=== PATIENT | female | born 1985 | race Caucasian/White ===

== ENCOUNTER → 2016-12-28 | Outpatient (CLI) | payer BC ==
--- NOTE | 2016-12-28 16:41 | MR ---
EXAMINATION: MRI right femur HISTORY: Muscle strain COMPARISON: None TECHNIQUE: Multiplanar and multisequence images obtained through the right lower leg without contras t. Coronal and sagittal reconstructions obtained. FINDINGS: The semimembranosus tendon appears torn proximally with distal retraction of the muscle nash dy. The proximal semimembranosus tendon is irregular in signal. There are surrounding edema and appe ars complete. There is also increased signal within the semitendinosus muscle body extending to the myotendinous junction. The biceps femoris appears normal in signal. The remaining muscular and tendi nous signal characteristics appear normal. The visualized intrapelvic structures are unremarkable. T he ACL and the PCL are intact. No suprapatellar joint effusion. No abnormal bone mineralization. IMPRESSION: 1. High-grade full-thickness tear of the semimembranosus tendon proximally 2. Mild to moderate myotendinous strain of the semitendinosus muscle
== END ==
LOC: MW.MRI 10:01
PROVIDERS: ATTEND Physician Assistant
DX: S86.121A Laceration of other muscle(s) and tendon(s) of posterior muscle group at lower leg level, right leg, initial encounter (principal); S76.311A Strain of muscle, fascia and tendon of the posterior muscle group at thigh level, right thigh, initial encounter
CPT/HCPCS: 73718-26-RT; 73718-RT

== ENCOUNTER 2018-06-05 11:10 | Day surgery (SDC) | payer BC ==
[2018-06-05] MEDS: Lactated Ringers 1,000 ML IV SCH ×3 (12:00→20:04)
--- NOTE | 2018-06-05 12:39 | PCM.PREANE ---
Preanesthetic Assessment - Procedure Proposed Procedure: Left Ovarian Cystectomy via laparoscopy - Anesthesia/Transfusion/Family Hx Other Type of Anesthesia Reaction Comment: stated urinary retention after recent BTL at elsewhere Family History of Anesthesia Reaction: No Transfusion History: No Prior Transfusion(s) Additional History: [place] noted. - Review of Systems General: No Symptoms Pulmonary: Other (smoker; recent bronchitis) Cardiovascular: No Symptoms Gastrointestinal: Abdominal Pain (left side) Neurological: No Symptoms - Physical Assessment NPO Status Date: 06/04/18 NPO Status Time: 22:00 Height: 5 ft 3 in Weight: 154 lb ASA Class: 2 Mental Status: Alert & Oriented x3 Airway Class: Mallampati = 1 Dentition: Reports: Normal Dentition, Caries Thyro-Mental Finger Breadths: 3 Mouth Opening Finger Breadths: 3 ROM/Head Extension: Full Lungs: Clear to Auscultation, Normal Respiratory Effort Cardiovascular: Regular Rate, Regular Rhythm, No Murmurs - Allergies Allergies/Adverse Reactions: Allergies Allergy/AdvReac Type Severity Reaction Status Date / Time hydrocodone Allergy Nausea Verified 05/31/18 12:11 - Blood Blood Available: No Product(s) Available: None - Anesthesia Plan Pre-Op Medication Ordered: None - Acknowledgements Anesthesia Type Planned: General Anesthesia (OET for laparoscopy) Pt an Appropriate Candidate for the Planned Anesthesia: Yes Alternatives and Risks of Anesthesia Discussed w Pt/Guardian: Yes Pt/Guardian Understands and Agrees with Anesthesia Plan: Yes PreAnesthesia Questionnaire - Past Health History Medical/Surgical History: Denies Medical/Surgical History HEENT History: Reports: Other (See Below) Other HEENT History: wears glasses Genitourinary History: Reports: None 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: Psychiatric History: Reports: Anxiety, Depression - Past Surgical History Head Surgeries/Procedures: Reports: None HEENT Surgical History: Reports: Oral Surgery Female Surgical History: Reports: Other (See Below) Other Female Surgeries/Procedures: laparoscopic guillermo salpingectomy - SUBSTANCE USE Smoking Status *Q: Current Every Day Smoker Tobacco Use Within Last Twelve Months: Cigarettes Recreational Drug Use History: No - HOME MEDS Home Medications: Home Meds ALPRAZolam [Xanax] 1 mg PO TID PRN 05/31/18 [History] Citalopram [Citalopram HBr] 20 mg PO DAILY 05/31/18 [History] buPROPion HCl [Wellbutrin Xl] 300 mg PO DAILY 05/31/18 [History]
[2018-06-05] MEDS: Nicotine 7 MG/24 Hr Patch TRDERM SCH ×2 (15:01→15:05)
[2018-06-05] MEDS ORDERED: Lidocaine 2% 5 ML SDV ONE (17:04)
[2018-06-05] MEDS ORDERED: Rocuronium 10 MG/ML 10 ML Syringe ONE (17:04)
[2018-06-05] MEDS ORDERED: Ondansetron 4 MG/2 ML SDV ONE (17:04)
[2018-06-05] MEDS ORDERED: Propofol 200 MG/20 ML SDV ONE (17:05)
[2018-06-05] MEDS ORDERED: fentaNYL 250 MCG/5 ML SDV ONE (17:06)
[2018-06-05] MEDS ORDERED: Midazolam 1 MG/ML 2 ML SDV ONE (17:06)
[2018-06-05] MEDS ORDERED: Bupivacaine 0.25% 10 ML SDV ONE (17:55)
[2018-06-05] MEDS ORDERED: Succinylcholine 200 MG/10 ML MDV ONE (18:19)
[2018-06-05] MEDS ORDERED: Neostigmine Methylsulfate 1 MG/ML 5 ML Syringe ONE (18:59)
[2018-06-05] MEDS ORDERED: Glycopyrrolate 0.2 MG/ML SDV ONE ×2 (18:59)
--- NOTE | 2018-06-05 19:31 | PCM.OPNOTE ---
- General Post-Op/Procedure Note Date of Surgery/Procedure: 06/05/18 Operative Procedure(s): operative laparoscopy, left ovarian cystectomy, lysis of adhesions Findings: normal appearing uterus, liver, gallbladder, left ovary, cul de sac. Right ovary with adhesion to sigmoid epiploica (lysed) adhesion of cecum to abdominal wall (lysed), simple left ovarian cyst , clear fluid, wall sent to pathology, no evidence of hernia or endometriosis. Pre Op Diagnosis: left lower quadrant and pelvic pain Post-Op Diagnosis: Same and adhesions Anesthesia Technique: General ET Tube Primary Surgeon: Flor Johnson Anesthesia Provider: Sergey Renee Beam Press Operator: Cammie Quiroz Pathology: left ovarian cyst wall biopsy EBL in mLs: 5 Complications: None known Condition: Good
--- NOTE | 2018-06-05 19:43 | PCM.POSTAN ---
POST ANESTHESIA ASSESSMENT - MENTAL STATUS Mental Status: Alert, Oriented - RESPIRATORY Respiratory Status: Respiratory Rate WNL, Airway Patent, O2 Saturation Stable - CARDIOVASCULAR CV Status: Pulse Rate WNL, Blood Pressure Stable - GASTROINTESTINAL GI Status: No Symptoms - PAIN Free Text/Narrative:: pr resting comfortably - POST OP HYDRATION Hydration Status: Adequate & Stable
[2018-06-05] MEDS: Acetaminophen/oxyCODONE 325-5 MG Tab PO PRN (20:04)
--- NOTE | 2018-06-05 20:18 | PCM48HPAN ---
Post Anesthesia Note - EVALUATION WITHIN 48HRS OF ANESTHETIC Vital Signs in Normal Range: Yes Patient Participated in Evaluation: Yes Respiratory Function Stable: Yes Airway Patent: Yes Cardiovascular Function Stable: Yes Hydration Status Stable: Yes Pain Control Satisfactory: Yes Nausea and Vomiting Control Satisfactory: Yes Mental Status Recovered: Yes Resp Rate: 11
[2018-06-06] MEDS: Acetaminophen/oxyCODONE 325-5 MG Tab PO PRN ×2 (01:56→08:07)
--- NOTE | 2018-06-06 02:19 | OR ---
SURGEON: Flor Johnson M.D. DATE OF PROCEDURE: 06/05/2018 PREOPERATIVE DIAGNOSIS: Left lower quadrant and pelvic pain. POSTOPERATIVE DIAGNOSES: 1. Left lower quadrant and pelvic pain. 2. Pelvic adhesions. PROCEDURE: Laparoscopic lysis of adhesion and left ovarian cystectomy. ANESTHESIA: General endotracheal. FLUIDS: 1800 mL crystalloid. FINDINGS: The left lower quadrant incision from the aspect of the peritoneum was normally healed with no evidence of any hernia. The left tube and ovary appeared normal. The uterus appeared normal. The anterior and posterior cul-de-sac appeared normal. There was no evidence of any endometriosis. The cecum was scarred to the right lower quadrant as previously noted, however, at this point, both adhesions were lysed. The liver and gallbladder appeared normal. There were adhesions of the sigmoid epiploica to the right ovary. The right ovary otherwise appeared normal. COMPLICATIONS: None known. DISPOSITION: Stable to recovery. BRIEF HISTORY: This is a 32-year-old female, she presents approximately two and half months following a laparoscopic bilateral salpingectomy for sterilization. The surgery was uncomplicated, however, was complicated by postop urinary retention, which initiated a pain cycle that has not resolved for her. Her pain is primarily in the left lower quadrant. She did have a CT scan in the emergency room where she presented and it was noted that she had a 2.4 cm left ovarian cyst. This was followed up by ultrasound, initially did not resolve, therefore she requested proceeding with ovarian cystectomy in hopes that this may help her pain as well as evaluation for adhesions or other causes of her pain. However, on the day of surgery, repeat ultrasound showed this cyst to be resolved and now there was a 1.4 cm simple cyst on the left ovary. I explained to her that it may be beneficial to avoid surgery and proceed with physical therapy or other methods to address her pain, however, she desires to proceed with a laparoscopic evaluation with risks discussed including bleeding, infection, injury to bowel, bladder, blood vessels, or other organs, risk of thromboembolic event, and risk of anesthesia. Understanding all these risks, she does desire to proceed. DESCRIPTION OF PROCEDURE: The patient in dorsal lithotomy position, under adequate general endotracheal anesthesia, the abdomen was prepped with chlorhexidine and the perineum and vagina were prepped with Betadine and draped in usual fashion for laparoscopic surgery. Bladder had been drained with a red Chapa catheter, and appropriate time-out was held. Bimanual examination revealed an anteverted 8 weeks' size uterus. Speculum was placed in the vagina. Hulka tenaculum was placed on the cervix. Speculum was removed. The bloom conveyor operator's gloves were changed. Attention was then turned abdominally, where 3 mL of 0.25% Marcaine were injected cephalad from the umbilicus, a 5 mm incision was made with a scalpel. Veress needle was inserted. Opening pressure was 1 mmHg, CO2 was insufflated to develop an adequate pressure of 13 mmHg. A 5 mm trocar was placed. Laparoscope was placed in the abdominal cavity. There was no evidence of any trauma from the trocar placement. The uterus was elevated, special attention was placed to the left lower quadrant and documentation was performed. Findings are noted above. The left lower quadrant incision was then used for the second port site and after complete evaluation and documentation, the Harmonic SIMBA was utilized to lyse the adhesion between the cecum and the abdominal wall. Using a setting of 3 and placing the Harmonic SIMBA near the abdominal wall well away from the bowel, the epiploica adhesion was also lysed. The left ovary was carefully inspected and the cyst was opened with the Harmonic SIMBA. The clear fluid was noted. The wall of the cyst was grasped and small pieces of the wall were removed, however, there was not a discrete cyst wall, it was more consistent with a follicular cyst. All of this being completed, the abdomen was desufflated and evaluated for hemostasis. The pelvis was hemostatic under 3 mmHg of pressure, therefore, the port sites were removed and the abdomen was completely desufflated. The port sites were closed with a subcuticular suture of 4-0 Monocryl. The Hulka tenaculum was removed. The speculum was placed in the vagina. Cervix was inspected and was hemostatic. The speculum was removed from the vagina. Final sponge, needle, and instrument counts were reported as correct. There were no known complications. The patient was transferred to recovery in good condition. SARA GEORGE /[id number]
--- NOTE | 2018-06-06 08:35 | PCM.SURGPN ---
- General Info Date of Service: 06/06/18 Date of Surgery/Procedure: 06/05/18 POD#: 1 Post-Op Diagnosis: pelvic pain, pelvic adhesions Functional Status: Reports: Pain Controlled (with Percocet), Tolerating Diet ( clears), Ambulating. Denies: Urinating - Review of Systems General: Reports: No Symptoms HEENT: Reports: No Symptoms Pulmonary: Reports: No Symptoms Cardiovascular: Reports: No Symptoms Gastrointestinal: Reports: No Symptoms Musculoskeletal: Reports: No Symptoms Skin: Reports: No Symptoms Neurological: Reports: No Symptoms Psychiatric: Reports: No Symptoms - Patient Data Vitals - Most Recent: Last Vital Signs Temp 36.7 C 06/06/18 01:00 Pulse 60 06/06/18 01:00 Resp 16 06/06/18 01:00 BP 106/58 L 06/06/18 01:00 Pulse Ox 97 06/06/18 01:00 Weight - Most Recent: 69.853 kg I&O - Last 24 Hours: Intake & Output 06/05/18 06/06/18 06/06/18 22:59 06:59 14:59 Intake Total 1900 1200 Output Total 975 Balance 1900 225 Med Orders - Current: Current Medications Bethanechol Chloride (Urecholine) 25 mg PO Q6H PRN PRN Reason: Other Lactated Ringer's (Ringers, Lactated) 1,000 mls @ 125 mls/hr IV ASDIRECTED [facility] Last Admin: 06/05/18 20:04 Dose: 125 mls/hr Nicotine (Habitrol) 7 mg TRDERM DAILY [facility] Last Admin: 06/05/18 15:05 Dose: 7 mg Oxycodone/Acetaminophen (Percocet 325-5 Mg) 1 tab PO Q6H PRN PRN Reason: Pain Last Admin: 06/06/18 08:07 Dose: 1 tab Discontinued Medications Bethanechol Chloride (Urecholine) 25 mg PO ONETIME ONE Stop: 06/05/18 20:45 Last Admin: 06/05/18 21:18 Dose: 25 mg Bupivacaine HCl (Sensorcaine-Mpf 0.25%) Confirm Administered Dose 10 ml .ROUTE .STK-MED ONE Stop: 06/05/18 17:56 Fentanyl (Sublimaze) Confirm Administered Dose 250 mcg .ROUTE .STK-MED ONE Stop: 06/05/18 17:07 Glycopyrrolate (Robinul) Confirm Administered Dose 0.2 mg .ROUTE .STK-MED ONE Stop: 06/05/18 19:00 Glycopyrrolate (Robinul) Confirm Administered Dose 0.2 mg .ROUTE .STK-MED ONE Stop: 06/05/18 19:00 Acetaminophen (Ofirmev) Confirm Administered Dose 100 mls @ as directed IV .STK- MED ONE Stop: 06/05/18 17:56 Lidocaine (Xylocaine-Mpf 2%) Confirm Administered Dose 5 ml .ROUTE .STK-MED ONE Stop: 06/05/18 17:05 Midazolam HCl (Versed 1 Mg/Ml) Confirm Administered Dose 2 mg .ROUTE .STK-MED ONE Stop: 06/05/18 17:07 Neostigmine Methylsulfate (Neostigmine) Confirm Administered Dose 5 mg .ROUTE .STK-MED ONE Stop: 06/05/18 19:00 Ondansetron HCl (Zofran) Confirm Administered Dose 4 mg .ROUTE .STK-MED ONE Stop: 06/05/18 17:05 Propofol (Diprivan 20 Ml) Confirm Administered Dose 200 mg .ROUTE .STK-MED ONE Stop: 06/05/18 17:06 Rocuronium [facility] (Zemuron) Confirm Administered Dose 100 mg .ROUTE .STK-MED ONE Stop: 06/05/18 17:05 Succinylcholine Chloride (Quelicin) Confirm Administered Dose 200 mg .ROUTE .STK -MED ONE Stop: 06/05/18 18:20 - Exam Wound/Incisions: Dressing Dry and Intact General: Alert, Oriented GI/Abdominal Exam: Normal Bowel Sounds, Soft, Non-Tender Extremities: Normal Inspection, Normal Range of Motion, Non-Tender, No Pedal Edema, Normal Capillary Refill Psy/Mental Status: Alert, Normal Affect, Normal Mood - Problem List & Annotations (1) Pelvic and perineal pain SNOMED Code(s): 823894597 Code(s): R10.2 - PELVIC AND PERINEAL PAIN Status: Acute Current Visit: Yes (2) Pelvic peritoneal adhesions SNOMED Code(s): 333639498 Code(s): EED9332 - Status: Acute Current Visit: Yes - Problem List Review Problem List Initiated/Reviewed/Updated: Yes - My Orders Last 24 Hours: Active Orders 24 hr Category Date Time Status Ready for Discharge [RC] PER UNIT ROUTINE Care 06/05/18 19:35 Active Regular Diet [DIET] Diet 06/06/18 Breakfast Active Acetaminophen/oxyCODONE [Percocet 325-5 MG] Med 06/05/18 19:49 Active 1 tab PO Q6H PRN Bethanechol [Urecholine] Med 06/05/18 20:48 Active 25 mg PO Q6H PRN Lactated Ringers [Ringers, Lactated] 1,000 ml Med 06/05/18 15:15 Active IV ASDIRECTED Nicotine [Habitrol] Med 06/05/18 15:00 Active 7 mg TRDERM DAILY Medication Orders Bethanechol Chloride (Urecholine) 25 mg PO Q6H PRN PRN Reason: Other Lactated Ringer's (Ringers, Lactated) 1,000 mls @ 125 mls/hr IV ASDIRECTED [facility] Last Admin: 06/05/18 20:04 Dose: 125 mls/hr Infusion: 06/05/18 20:04 Dose: 125 mls/hr Admin: 06/05/18 15:15 Dose: 125 mls/hr Infusion: 06/05/18 15:15 Dose: 125 mls/hr Admin: 06/05/18 12:00 Dose: 125 mls/hr Nicotine (Habitrol) 7 mg TRDERM DAILY [facility] Last Admin: 06/05/18 15:05 Dose: 7 mg Admin: 06/05/18 15:01 Dose: 7 mg Oxycodone/Acetaminophen (Percocet 325-5 Mg) 1 tab PO Q6H PRN PRN Reason: Pain Last Admin: 06/06/18 08:07 Dose: 1 tab Admin: 06/06/18 01:56 Dose: 1 tab Admin: 06/05/18 20:04 Dose: 1 tab - Assessment Assessment (Free Text/Narrative):: POD#1 after laparoscopy with lysis of pelvic adhesions. Urinary retention, this is consistent with her prior laparoscopy. She was unable to void after catheter removed, no with 700 ml in bladder, she received bethanechol last night. Will proceed with same course as last time, home with leg bag, return on Tuesday for voiding trial. Patient and her concur with plan.
[2018-06-06] MEDS ORDERED: Ketorolac 30 MG/ML SDV IVPUSH ONE (08:40)
== END 2018-06-06 10:28 | disposition home or self-care (01) ==
LOC: MW.SDS 11:10 → MW.OB 21:53 → MW.SDS 06-06 10:28
PROVIDERS: ATTEND Obstetrics & Gynecology
DX: N83.02 Follicular cyst of left ovary (principal); N73.6 Female pelvic peritoneal adhesions (postinfective); F17.210 Nicotine dependence, cigarettes, uncomplicated; E78.00 Pure hypercholesterolemia, unspecified; F41.9 Anxiety disorder, unspecified; F32.9 Major depressive disorder, single episode, unspecified; Z88.5 Allergy status to narcotic agent; Z79.899 Other long term (current) drug therapy
CPT/HCPCS: 51701; 51702; 58662; A9270; J0131; J0330; J1885; J2250; J2405; J2704; J3010; J3490; J7120; 00840; 88305